=== PATIENT | male | born 1955 | race Hispanic/Latino ===

== ENCOUNTER 2016-12-13 09:00 | Emergency (ER) | payer MEDICARE ==
[2016-12-13 09:01] VITALS: BMI 29.0
[2016-12-13 09:06] VITALS: RESP 18; TEMP 98.6; O2SAT 100
[2016-12-13] MEDS ORDERED: DiphenhydrAMINE 50 mg/ml Inj IVP STA (09:28)
[2016-12-13 09:41] LABS: ADD MANUAL DIFF? NO
[2016-12-13 09:44] LABS: BASO # 0.02 K/mm3 (0.0-2.0); BASO % 0.3 % (0.0-3.0); EOS # 0.2 (0.0-0.7); EOS % 3.3 % (1.5-5.0); GRAN # 4.69 (1.4-6.5); GRAN % 72.8 % (50.0-68.0); HEMATOCRIT 36.4 % (42.0-52.0); LYMPH % 15.1 % (22.0-35.0); MEAN CELL VOLUME 93.8 fL (80.0-105.0); MEAN CORPUSCULAR HEMOGLOBIN 32.5 pg (25.0-35.0); MEAN CORPUSCULAR HGB CONC 34.6 g/dl (31.0-37.0); MEAN PLATELET VOLUME 11.6 fl (7.0-11.0); MONO # 0.6 (0.1-0.6); MONO % 8.5 % (1.0-6.0); PLATELET COUNT 127 10^3/uL (120.0-450.0); RED CELL DISTRIBUTION WIDTH 12.4 % (11.5-14.5); WHITE BLOOD COUNT 6.4 10^3/ul (4.5-11.0)
[2016-12-13 09:58] LABS: ALB/GLOB RATIO 1.4 (1.1-1.8); ALKALINE PHOSPHATASE 44 U/L (38-133); ALT/SGPT 42 U/L (7-56); AST/SGOT 29 U/L (15-59); BILIRUBIN,TOTAL 0.9 mg/dL (0.2-1.3); BLOOD UREA NITROGEN 12 mg/dL (7-21); CALCIUM 8.9 mg/dL (8.4-10.5); CARBON DIOXIDE 27 mmol/L (21-33); CHLORIDE 94 mmol/L (98-107); GFR AFRICAN-AMERICAN > 60; GLUCOSE,RANDOM 113 mg/dL (70-110); POTASSIUM 4.1 mmol/L (3.6-5.0); SODIUM 132 mmol/L (132-148); TOTAL PROTEIN 7.7 g/dL (5.8-8.3)
--- NOTE | 2016-12-13 12:19 | ED PDOC ---
Arrival/HPI - General Chief Complaint: Allergic Reaction Time Seen by Provider: 12/13/16 09:28 Historian: Patient - History of Present Illness Narrative History of Present Illness (Text): 12/13/16 12:11 61yo male present with complaint of throat swelling. States he feels like his throat is closing. He states that he was given Doxycycline 3days ago for possible cellulitis of his right lower leg after insect bite. States he have taken 3tabs of the Doxycycline and started experiencing the symptom he is having this morning. Thinks he is allergic to the Doxycycline. He notes that he took a tab of Benadryl [employer]. He denies drooling, stridor, rash, itching, any other inciting factors. Past Medical History - Provider Review Nursing Documentation Reviewed: Yes - Tetanus Immunization Tetanus Immunization: Unknown - Cardiac Hx Cardiac Disorders: Yes Hx Hypertension: Yes - Pulmonary Hx Respiratory Disorders: No - Neurological Hx Neurological Disorder: No - HEENT Hx HEENT Disorder: No - Renal Hx Renal Disorder: No - Endocrine/Metabolic Hx Endocrine Disorders: No - Hematological/Oncological Hx Blood Disorders: No - Integumentary Hx Dermatological Disorder: Yes Other/Comment: chronic cellulitis to lle, redness surrounding 2cm round wound and 3cm deep. - Musculoskeletal/Rheumatological Hx Falls: No - Gastrointestinal Hx Gastroesophageal Reflux: Yes - Genitourinary/Gynecological Hx Genitourinary Disorders: No - Psychiatric Hx Psychophysiologic Disorder: No Hx Emotional Abuse: No Hx Physical Abuse: No Hx Substance Use: No - Surgical History Hx Appendectomy: Yes Hx Joint Replacement: Yes (right knee reconstruction, right hip replacement) Hx Orthopedic Surgery: Yes (mult left leg sx) - Anesthesia Hx Anesthesia Reactions: No Hx Malignant Hyperthermia: No - Suicidal Assessment Feels Threatened In Home Enviroment: No Family/Social History - Physician Review Nursing Documentation Reviewed: Yes Family/Social History: Unknown Family HX Smoking Status: Former Smoker Hx Alcohol Use: Yes (socially) Hx Substance Use: No Allergies/Home Meds Allergies/Adverse Reactions: Allergies linezolid [From Zyvox] Allergy (Severe, Verified 12/13/16 09:06) SWELLING Sulfa (Sulfonamide Antibiotics) Allergy (Verified 12/13/16 09:06) ANGIOEDEMA sulfamethoxazole [From Bactrim] Adverse Reaction (Verified 12/13/16 09:06) ANGIOEDEMA trimethoprim [From Bactrim] Adverse Reaction (Verified 12/13/16 09:06) ANGIOEDEMA Home Medications: Home Meds Medication Instructions Recorded Confirmed Doxycycline Hyclate [Doryx] 100 mg PO DAILY 12/13/16 12/13/16 Esomeprazole Magnesium [Nexium] 40 mg PO DAILY 12/13/16 12/13/16 Febuxostat [Uloric] 40 mg PO DAILY 12/13/16 12/13/16 Lisinopril [Zestril] 40 mg PO DAILY 12/13/16 12/13/16 Review of Systems - Physician Review All systems were reviewed & negative as marked: Yes - Review of Systems Constitutional: Normal Eyes: Normal ENT: Other (Throat swelling) Respiratory: Normal Cardiovascular: Normal Gastrointestinal: Normal Genitourinary Male: Normal Musculoskeletal: Normal Skin: Normal Neurological: Normal Endocrine: Normal Hemo/Lymphatic: Normal Psychiatric: Normal Physical Exam Vital Signs Reviewed: Yes Vital Signs Temp Pulse Resp BP Pulse Ox 12/13/16 12:39 75 18 158/79 H 100 12/13/16 11:01 76 18 163/89 H 100 12/13/16 09:05 98.6 F 89 18 165/97 H 100 Temperature: Afebrile Blood Pressure: Normal Pulse: Regular Respiratory Rate: Normal Appearance: Positive for: Well-Appearing, Non-Toxic, Comfortable Pain Distress: None Mental Status: Positive for: Alert and Oriented X 3 - Systems Exam Head: Present: Atraumatic, Normocephalic Pupils: Present: PERRL Extroacular Muscles: Present: EOMI Conjunctiva: Present: Normal Mouth: Present: Moist Mucous Membranes. No: Drooling Pharnyx: No: Muffled/Hoarse Voice, Strider Neck: Present: Normal Range of Motion Respiratory/Chest: Present: Clear to Auscultation, Good Air Exchange. No: Respiratory Distress, Accessory Muscle Use Cardiovascular: Present: Regular Rate and Rhythm, Normal S1, S2. No: Murmurs Abdomen: Present: Normal Bowel Sounds. No: Tenderness, Distention, Peritoneal Signs Back: Present: Normal Inspection Upper Extremity: Present: Normal Inspection. No: Cyanosis, Edema Lower Extremity: Present: Normal Inspection. No: Edema Neurological: Present: GCS=15, CN II-XII Intact, Speech Normal Skin: Present: Warm, Dry, Normal Color. No: Rashes Psychiatric: Present: Alert, Oriented x 3, Normal Insight, Normal Concentration Medical Decision Making ED Course and Treatment: 12/13/16 18:15 PT improved in ED. No drooling. No stridor noted. His lab was unremarkable. Afebrile. He was advised to stop doxy and Keflex was given. Case was DW Dr. butler and he agreed with the plan. Pt advised to f/u with Dr. butler. TRT ED for any new or worsening symptoms - Lab Interpretations Lab Results: 12/13/16 09:40 12/13/16 09:40 Lab Results 12/13/16 09:40: Sodium 132, Potassium 4.1, Chloride 94 L, Carbon Dioxide 27, Anion Gap 15, BUN 12, Creatinine 0.8, Est GFR ( Amer) > 60, Est GFR (Non- Af Amer) > 60, Random Glucose 113 H, Calcium 8.9, Total Bilirubin 0.9, AST 29, ALT 42, Alkaline Phosphatase 44, Total Protein 7.7, Albumin 4.5, Globulin 3.3, Albumin/Globulin Ratio 1.4 12/13/16 09:40: WBC 6.4, RBC 3.88, Hgb 12.6 L, Hct 36.4 L, MCV 93.8, MCH 32.5, MCHC 34.6, RDW 12.4, Plt Count 127, MPV 11.6 H, Gran % 72.8 H, Lymph % (Auto) 15.1 L, [place] % (Auto) 8.5 H, Eos % (Auto) 3.3, Baso % (Auto) 0.3, Gran # 4.69, Lymph # 1.0 L, [place] # 0.6, Eos # 0.2, Baso # 0.02 - Medication Orders Current Medication Orders: Discontinued Medications Diphenhydramine HCl (Benadryl) 25 mg IVP STAT STA Stop: 12/13/16 09:29 Last Admin: 12/13/16 09:37 Dose: 25 mg Famotidine (Pepcid) 20 mg IVP STAT STA Stop: 12/13/16 09:30 Last Admin: 12/13/16 09:37 Dose: 20 mg Methylprednisolone (Solu-Medrol) 125 mg IVP STAT STA Stop: 12/13/16 09:30 Last Admin: 12/13/16 09:37 Dose: 125 mg Disposition/Present on Arrival - Present on Arrival Any Indicators Present on Arrival: No History of DVT/PE: No History of Uncontrolled Diabetes: No Urinary Catheter: No History of Decub. Ulcer: No History Surgical Site Infection Following: None - Disposition Have Diagnosis and Disposition been Completed?: Yes Diagnosis: Allergic reaction, Cellulitis Disposition: HOME/ ROUTINE Disposition Time: 12:20 Patient Plan: Discharge Condition: IMPROVED Discharge Instructions (ExitCare): Urticaria (ED), Cellulitis (ED) Additional Instructions: Follow up with your Doctor Stop taking Doxycyline and start new antibiotics Return to ED immediately for any new or worsening symptoms Prescriptions: Cephalexin [Keflex] 500 mg PO QID #28 capsule DiphenhydrAMINE [Benadryl] 25 mg PO Q4H #30 cap Famotidine [Pepcid] 20 mg PO ONCE #10 tab Prednisone [Deltasone] 20 mg PO BID #6 tablet Referrals: Rj Talley MD [Primary Care Provider] - Follow up with primary
[2016-12-13 12:40] VITALS: BP 158/79; PULSE 75
== END 2016-12-13 12:53 | disposition home or self-care (01) ==
LOC: ED 09:00
DX: T78.40XA Allergy, unspecified, initial encounter (principal); X58.XXXA Exposure to other specified factors, initial encounter; L03.115 Cellulitis of right lower limb; Z87.891 Personal history of nicotine dependence; I10 Essential (primary) hypertension
CPT/HCPCS: 80053; 85025; 96374; 96375; 99285; J1200; J2930

== ENCOUNTER 2018-07-23 12:00 | Outpatient (CLI) | payer MEDICARE | END 2018-07-23 12:01 | disposition home or self-care (01) | LOC: LAB 12:00 ==

== ENCOUNTER 2018-08-13 12:57 | Outpatient (CLI) | payer MEDICARE | END 2018-08-13 12:58 | disposition home or self-care (01) | LOC: RAD 12:57 ==

== ENCOUNTER → 2018-09-25 | Outpatient (CLI) | payer MEDICARE | LOC: LAB 13:44 ==

== ENCOUNTER 2018-11-05 14:06 | Outpatient (CLI) | payer MEDICARE | END 2018-11-05 14:07 | disposition home or self-care (01) | LOC: LAB 14:06 ==